=== PATIENT | male | born 1985 | race Two or more races ===

== ENCOUNTER 2018-10-12 09:15 | Emergency (ER) | payer OTHER ==
[~2018-10-12] VITALS: Ht 170.2 cm; Wt 88.5 kg
[2018-10-12] MEDS ORDERED: OSEL75CA (09:30)
[2018-10-12] MEDS ORDERED: ZITHROMAX TRI-500 MG (09:30)
[2018-10-12] MEDS ORDERED: TESSALON PERLE100 M1 (09:30)
[2018-10-12] MEDS ORDERED: VITAMIN C 500MG (09:32)
== END 2018-10-12 13:20 | disposition home or self-care (01) ==
LOC: ER 09:15
DX: K52.9 Noninfective gastroenteritis and colitis, unspecified (principal); E86.0 Dehydration

== ENCOUNTER 2019-03-23 20:54 | Emergency (ER) | payer OTHER ==
[~2019-03-23] VITALS: Ht 167.6 cm; Wt 88.5 kg
[~2019-03-23 20:54] MED LIST: OSEL75CA; TESSALON PERLE100 M1; VITAMIN C 500MG; ZITHROMAX TRI-500 MG
[2019-03-23] MEDS ORDERED: ASPIR 8181 MG (21:03)
== END 2019-03-23 23:21 | disposition home or self-care (01) ==
LOC: ER 20:54
DX: S93.491A Sprain of other ligament of right ankle, initial encounter (principal); M25.561 Pain in right knee; W10.8XXA Fall (on) (from) other stairs and steps, initial encounter; Y93.89 Activity, other specified; Y92.098 Other place in other non-institutional residence as the place of occurrence of the external cause; Y99.8 Other external cause status